=== PATIENT | female | born 1950 | race Caucasian/White ===

== ENCOUNTER → 2018-08-31 | Outpatient (CLI) | payer MEDICARE ==
[~2018-08-31] MED LIST: ASPI-933 PO; FLUO20CA25 PO; METO50TA7 PO; SIMV40TA2 PO; TRM50T PO
--- NOTE | 2018-08-31 14:36 | Diagnostic Imaging Report ---
PROCEDURE: CT abdomen and pelvis without contrast. TECHNIQUE: Multiple contiguous axial images were obtained through the abdomen and pelvis without the use of intravenous contrast. Auto Exposure Controls were utilized during the CT exam to meet ALARA standards for radiation dose reduction. INDICATION: Microhematuria. Patient has history of kidney stones. COMPARISON: No prior studies are available for comparison. FINDINGS: Lung bases demonstrates calcified granuloma in the right lower lobe. The liver is unremarkable. There appears to be a tiny stone within the gallbladder. No biliary ductal dilatation is seen. Pancreas is unremarkable. There are numerous calcified granulomas throughout the spleen. No adrenal mass is identified. No definite renal calculi or evidence of hydronephrosis is detected. No ureteral or bladder calculi are seen. Aorta and iliac vessels are heavily calcified but nonaneurysmal. Small and large bowel loops are normal in caliber. There is diverticulosis of the sigmoid but no evidence of acute diverticulitis. The uterus is unremarkable. No definite abdominal or pelvic lymphadenopathy is seen. Appendix is unremarkable. IMPRESSION: 1. Cholelithiasis. 2. No definite evidence of urinary tract calculi or obstruction. 3. Uncomplicated diverticulosis. Dictated by: Dictated on workstation # [id number]
== END ==
LOC: RAD 14:03
PROVIDERS: ATTEND Urology
DX: K80.20 Calculus of gallbladder without cholecystitis without obstruction (principal); K57.30 Diverticulosis of large intestine without perforation or abscess without bleeding; R31.29 Other microscopic hematuria; Z87.442 Personal history of urinary calculi
CPT/HCPCS: 74176

== ENCOUNTER → 2018-09-21 | Outpatient (CLI) | payer OTHER, MEDICARE ==
--- NOTE | 2018-09-21 12:54 | Diagnostic Imaging Report ---
INDICATION: 68-year-old a systematic postmenopausal female. COMPARISON: None available. FINDINGS: AP Spine L1-L4: [BMD (g/cm2): 1.101] [T-Score: -0.8] [Z-Score: 0.2] [BMD Previous: na] [BMD % Change: na] LT Hip Neck: [BMD (g/cm2): 0.806] [T-Score: -1.7] [Z-Score: -0.5] LT Hip Total: [BMD (g/cm2):0.872] [T-Score:-1.1] [Z-Score: -0.2] [BMD Previous: na] [BMD % Change: na] RT Hip Neck: [BMD (g/cm2):0.826] [T-Score:-1.5] [Z-Score:-0.4] RT Hip Total: [BMD (g/cm2):0.916] [T-score:-0.7] [Z-Score:0.1] [BMD Previous:na] [BMD % Change:na] *Indicates significant change from prior examination based on 95% confidence level. World Health Organization criteria for BMD interpretation classify patients as Normal (T-score at or above -1.0), Osteopenic (T-score between -1.0 and -2.5) or Osteoporotic (T-score at or below -2.5). LIMITATIONS AND MODIFICATION: None. FRACTURE RISK (FRAX SCORE): The ten year probability of (%): Major Osteoporotic Fracture: [9.8] Hip Fracture: [2.1] IMPRESSION: 1. Osteopenia (Low bone mass). 2. Baseline examination. 3. See below National Osteoporosis Foundation guidelines on when to potentially initiate pharmacologic therapy. Based on the National Osteoporosis Foundation Guidelines, pharmacologic treatment should be initiated in any of the following, unless clinical conditions suggest otherwise: * Any patient with prior fragility fracture of the hip or vertebrae. A spine fracture indicates 5X risk for subsequent spine fracture and 2X risk for subsequent hip fracture. * Osteoporosis (T-score <-2.5). * Postmenopausal women and men age 50 and older with low bone mass/osteopenia (T-score between -1.0 and -2.5) by DXA and 10-year major osteoporotic fracture greater than 20% or a 10-year probability of hip fracture greater than 3%. These fracture risks are supplied above in the FRAX score, if applicable. * Clinician judgement and/or patient preferences may indicate treatment for people with 10-year fracture probabilities above or below these levels. Dictated by: Dictated on workstation # [id number]
== END ==
LOC: RAD 08:19
PROVIDERS: ATTEND Nurse Practitioner Primary Care
DX: M85.89 Other specified disorders of bone density and structure, multiple sites (principal); Z78.0 Asymptomatic menopausal state
CPT/HCPCS: 77080

== ENCOUNTER → 2019-04-06 | Outpatient (CLI) | payer MEDICARE, OTHER ==
--- NOTE | 2019-04-06 09:35 | Diagnostic Imaging Report ---
INDICATION: Screening. TECHNIQUE: The current study was also evaluated with a Computer Aided Detection (CAD) system. 3D Tomographic imaging was also performed. COMPARISON: 04/07/2018 and 03/17/2016. FINDINGS: There are scattered fibroglandular densities bilaterally. There are a few benign-type calcifications. There is no dominant mass, spiculated lesion, or suspicious calcification identified. The skin, nipples, and axillae are unremarkable. IMPRESSION: Benign findings. ACR BI-RADS Category 2: Benign findings. Result letter will be mailed to the patient. Note: At least 10% of breast cancer is not imaged by mammography. Dictated by: Dictated on workstation # [id number]
== END ==
LOC: RAD 07:12
PROVIDERS: ATTEND Nurse Practitioner Primary Care
DX: Z12.31 Encounter for screening mammogram for malignant neoplasm of breast (principal)
CPT/HCPCS: 77067

== ENCOUNTER → 2019-12-21 | Outpatient (CLI) | payer MEDICARE ==
[~2019-12-21] MED LIST changes: +RT-ALBUTEROL SULF 2.5 MG/3 ML PRE-MIX VIAL INH ONE
== END ==
LOC: RT 10:04
PROVIDERS: ATTEND Nurse Practitioner Family
DX: J44.9 Chronic obstructive pulmonary disease, unspecified (principal)
CPT/HCPCS: 94060; 94726; 94729

== ENCOUNTER → 2020-02-07 | Outpatient (CLI) | payer MEDICARE ==
[~2020-02-07] MED LIST changes: -RT-ALBUTEROL SULF 2.5 MG/3 ML PRE-MIX VIAL INH ONE
--- NOTE | 2020-02-07 09:23 | Diagnostic Imaging Report ---
PROCEDURE: CT chest without contrast. TECHNIQUE: Multiple contiguous axial images were obtained through the chest without the use of intravenous contrast. Auto Exposure Controls were utilized during the CT exam to meet ALARA standards for radiation dose reduction. INDICATION: Shortness of breath There are no prior CT chest examinations available for comparison. The heart size is at the upper limits of normal. There are extensive coronary calcifications evident.. The aorta is not abnormally dilated. There is no obvious mediastinal or hilar adenopathy. The thyroid gland was partially obscured by streak artifact. There are mild emphysematous changes involving both lungs. There is no significant component of interstitial fibrosis identified. There is a 3.6 x 6.0 cm calcified nodule in the right lung base. Most likely this is a benign granuloma. The images through the upper abdomen show that there is a 3.5 cm hiatal hernia. This finding is stable compared to the prior CT abdomen/pelvis exam of 08/31/2018. There is no acute abnormality of the upper abdomen. The bone windows show no evidence for a fracture or for destructive lesion. There is severe degenerative disc and bone disease involving the anterior aspects of T7T 8T9 and T10. There is no acute bony abnormality noted. IMPRESSION: 1. There is no acute cardiopulmonary abnormality. 2. There are mild emphysematous changes involving both lungs. There is no significant component of interstitial fibrosis identified. 3. There is borderline cardiomegaly and coronary artery disease. 4. The small hiatal hernia seen previously appears stable. 5. There is severe degenerative disc and bony disease involving the lower thoracic spine. Dictated by: Dictated on workstation # [id number]
== END ==
LOC: RAD 09:15
PROVIDERS: ATTEND Nurse Practitioner
DX: J43.9 Emphysema, unspecified (principal); K44.9 Diaphragmatic hernia without obstruction or gangrene; M51.34 Other intervertebral disc degeneration, thoracic region
CPT/HCPCS: 71250

== ENCOUNTER → 2020-04-06 | Outpatient (CLI) | payer MEDICARE ==
[2020-04-06 12:26] LABS: ALBUMIN 4.1 GM/DL (3.2-4.5); BILIRUBIN,TOTAL 0.4 MG/DL (0.1-1.0); CALCIUM 9.4 MG/DL (8.5-10.1); CREATININE SERUM 1.26 MG/DL (0.60-1.30); POTASSIUM 3.9 MMOL/L (3.6-5.0); TOTAL PROTEIN 7.6 GM/DL (6.4-8.2)
== END ==
LOC: LAB 11:45
PROVIDERS: ATTEND Internal Medicine Cardiovascular Disease
DX: E78.2 Mixed hyperlipidemia (principal)
CPT/HCPCS: 36415; 80053; 80061

== ENCOUNTER → 2020-04-11 | Outpatient (CLI) | payer MEDICARE | LOC: CARD 14:00 | PROVIDERS: ATTEND Internal Medicine Cardiovascular Disease | DX: I10 Essential (primary) hypertension (principal); R07.9 Chest pain, unspecified | CPT/HCPCS: 93306 ==

== ENCOUNTER → 2020-04-16 | Outpatient (CLI) | payer MEDICARE ==
[~2020-04-16] VITALS: Ht 165 cm; Wt 95.0 kg
[~2020-04-16] MED LIST changes: +CATHETER FLUSH 10 ML SYR IV PRN; +REGADENOSON 0.4 MG/5 ML SYR (LEXISCAN) IV ONE
[2020-04-16 08:51] VITALS: BP 169/78
--- NOTE | 2020-04-16 10:43 | Cardiology Stress Test Report ---
Stress Test Report Date of Procedure/Referring: Date of Procedure: Apr 16, 2020 PCP Mali Ross MD Admitting Physician Romi Boykin DO Indications: HTN Baseline Heart Rate: 67 Baseline Blood Pressure: Blood Pressure Systolic: 169 Blood Pressure Diastolic: 78 Baseline Vitals Vital Signs Date Time Temp Pulse Resp B/P (MAP) Pulse Ox O2 Delivery O2 Flow Rate FiO2 04/16/20 08:51 61 169/78 (108) 98 Baseline EKG: Baseline EKG: NSR Summary After explaining the procedure to the patient, she signed a consent and then brought to the stress nuclear laboratory. Patient received 0.4 mg Lexiscan for stress test, ECG, heart rate and blood pressure were monitored continuously. Resting and stress dose of radio tracer were injected, imaging was acquired and reviewed in short axis, horizontal long axis and vertical long axis views. TID: 0.96 SSS: 2 SDS: 0 EF: 73 1. Patient tolerated Lexiscan well 2. Breast attenuation with typical female pattern, mild decrease uptake at the mid anterior wall with subtle reversibility, no significant ischemia or infarction on SPECT images Normal left ventricular size, EF 73 percent MALI ROSS MD Apr 16, 2020 10:43
== END ==
LOC: CARD 06:44
PROVIDERS: ATTEND Internal Medicine Cardiovascular Disease
DX: I10 Essential (primary) hypertension (principal); R07.9 Chest pain, unspecified
CPT/HCPCS: 78452; 93017; A9502

== ENCOUNTER → 2020-05-11 | Outpatient (CLI) | payer MEDICARE ==
[~2020-05-11] MED LIST changes: -CATHETER FLUSH 10 ML SYR IV PRN; -REGADENOSON 0.4 MG/5 ML SYR (LEXISCAN) IV ONE
== END ==
LOC: LABNPT 06:04
PROVIDERS: ATTEND Nurse Practitioner Family
DX: J44.9 Chronic obstructive pulmonary disease, unspecified (principal); G47.10 Hypersomnia, unspecified; G47.34 Idiopathic sleep related nonobstructive alveolar hypoventilation; Z20.822 Contact with and (suspected) exposure to COVID-19
CPT/HCPCS: 87635

== ENCOUNTER → 2020-05-21 | Outpatient (CLI) | payer MEDICARE ==
--- NOTE | 2020-05-22 09:38 | Diagnostic Imaging Report ---
EXAMINATION: Digital mammogram INDICATION: Bilateral screening This study was compared to the prior exams of 04/06/2019, 04/07/2018 and 03/17/2016. At this time there are no current complaints. The current study was also evaluated with a Computer Aided Detection (CAD) system. FINDINGS: The fibroglandular tissue in both breasts is heterogeneously dense. This does limit the sensitivity of this exam. Overall, there does not appear to have been any significant change when compared to the prior study. No primary or secondary sign of malignancy is noted. IMPRESSION: There is no radiographic evidence for malignancy. ACR BI-RADS Category 1: Negative. Result letter will be mailed to the patient. Note: At least 10% of breast cancer is not imaged by mammography. Dictated by: Dictated on workstation # [id number]
== END ==
LOC: RAD 07:30
PROVIDERS: ATTEND Nurse Practitioner
DX: Z12.31 Encounter for screening mammogram for malignant neoplasm of breast (principal)
CPT/HCPCS: 77063; 77067

== ENCOUNTER → 2020-06-08 | Outpatient (CLI) | payer MEDICARE | LOC: LABNPT 08:33 | PROVIDERS: ATTEND Nurse Practitioner Family | DX: Z01.812 Encounter for preprocedural laboratory examination (principal); G47.10 Hypersomnia, unspecified; G47.34 Idiopathic sleep related nonobstructive alveolar hypoventilation; Z20.822 Contact with and (suspected) exposure to COVID-19 | CPT/HCPCS: 87635 ==

== ENCOUNTER → 2020-06-12 | Outpatient (CLI) | payer MEDICARE | LOC: SLEEP 20:18 | PROVIDERS: ATTEND Nurse Practitioner Family | DX: G47.10 Hypersomnia, unspecified (principal); G47.34 Idiopathic sleep related nonobstructive alveolar hypoventilation | CPT/HCPCS: 95811 ==

== ENCOUNTER → 2020-07-27 | Outpatient (CLI) | payer MEDICARE | LOC: LABNPT 09:03 | PROVIDERS: ATTEND Nurse Practitioner Family | DX: G47.10 Hypersomnia, unspecified (principal); G47.34 Idiopathic sleep related nonobstructive alveolar hypoventilation; G47.33 Obstructive sleep apnea (adult) (pediatric); Z20.822 Contact with and (suspected) exposure to COVID-19 | CPT/HCPCS: 87635 ==

== ENCOUNTER 2020-07-31 20:46 | Outpatient (CLI) | payer MEDICARE | END 2020-08-01 06:45 | disposition home or self-care (01) | LOC: SLEEP 20:46 | PROVIDERS: ATTEND Nurse Practitioner Family | DX: G47.33 Obstructive sleep apnea (adult) (pediatric) (principal); G47.34 Idiopathic sleep related nonobstructive alveolar hypoventilation; G47.10 Hypersomnia, unspecified | CPT/HCPCS: 95811 ==

== ENCOUNTER → 2020-09-25 | Outpatient (CLI) | payer MEDICARE | LOC: LABNPT 06:22 | PROVIDERS: ATTEND Nurse Practitioner Family | DX: G47.10 Hypersomnia, unspecified (principal); G47.34 Idiopathic sleep related nonobstructive alveolar hypoventilation; G47.33 Obstructive sleep apnea (adult) (pediatric); Z20.822 Contact with and (suspected) exposure to COVID-19 | CPT/HCPCS: 87635 ==

== ENCOUNTER 2020-09-27 20:34 | Outpatient (CLI) | payer MEDICARE | END 2020-09-28 06:30 | disposition home or self-care (01) | LOC: SLEEP 20:34 | PROVIDERS: ATTEND Nurse Practitioner Family | DX: G47.33 Obstructive sleep apnea (adult) (pediatric) (principal); G47.10 Hypersomnia, unspecified; G47.34 Idiopathic sleep related nonobstructive alveolar hypoventilation | CPT/HCPCS: 95811 ==

== ENCOUNTER → 2021-05-22 | Outpatient (CLI) | payer MEDICARE ==
--- NOTE | 2021-05-22 08:59 | Diagnostic Imaging Report ---
INDICATION: Routine screening. COMPARISON: 05/21/2020 and 04/06/2019. TECHNIQUE: 2D and 3D bilateral screening mammography was performed with CAD. FINDINGS: Scattered fibroglandular densities are identified bilaterally. Benign calcifications in both breasts appear stable. No new mass or malignant-appearing microcalcifications are seen. The axillae are unremarkable. IMPRESSION: No mammographic features suspicious for malignancy are identified. ACR BI-RADS Category 2: Benign findings. Result letter will be mailed to the patient. Note: At least 10% of breast cancer is not imaged by mammography. Dictated by: Dictated on workstation # [id number]
== END ==
LOC: RAD 07:30
PROVIDERS: ATTEND Nurse Practitioner
DX: Z12.31 Encounter for screening mammogram for malignant neoplasm of breast (principal)
CPT/HCPCS: 77063; 77067

== ENCOUNTER 2021-07-17 06:21 | Outpatient (CLI) | payer MEDICARE ==
[~2021-07-17] VITALS: Ht 165.1 cm; Wt 95.9 kg
[2021-07-17] MEDS ORDERED: FAMO-119 PO (10:45)
[2021-07-17] MEDS ORDERED: FLUT15.845 NS (10:45)
[2021-07-17] MEDS ORDERED: MELA5CAP PO (10:45)
[2021-07-17] MEDS ORDERED: LEVO50CA4 PO (10:45)
[2021-07-17] MEDS ORDERED: DOCU100T7 PO (10:45)
[2021-07-17] MEDS ORDERED: BUDE10.2 IH (10:45)
[2021-07-17] MEDS ORDERED: CHOL200078 PO (10:45)
[2021-07-17] MEDS ORDERED: OXYB-52 PO (10:45)
[2021-07-17] MEDS ORDERED: TRAZ-227 PO (10:45)
[2021-07-17] MEDS ORDERED: MULT120T PO (10:45)
[2021-07-17] MEDS ORDERED: LOSA1TAB20 PO (10:45)
[2021-07-17] MEDS ORDERED: BUPR-105 PO (10:45)
[2021-07-17] MEDS ORDERED: FLUO20TA28 PO (10:45)
[2021-07-17] MEDS ORDERED: OMEG-166 PO (10:45)
[2021-07-17] MEDS ORDERED: TIOT18CA2 IH (10:45)
[2021-07-17] MEDS ORDERED: CETI10TA24 PO (10:45)
[2021-07-17] MEDS ORDERED: ATOR20TA66 PO (10:45)
[2021-07-17] MEDS ORDERED: AMLO-251 PO (10:45)
[2021-07-17] MEDS ORDERED: CALC-79 PO (10:45)
== END 2021-07-17 13:39 | disposition home or self-care (01) ==
LOC: PREOP 06:21
PROVIDERS: ATTEND Surgery
DX: Z01.818 Encounter for other preprocedural examination (principal)

== ENCOUNTER 2021-07-30 07:53 | Day surgery (SDC) | payer MEDICARE ==
[~2021-07-30] VITALS: Ht 165 cm; Wt 95.9 kg
[~2021-07-30 07:53] MED LIST changes: +AMLO-251 PO; +ATOR20TA66 PO; +BUDE10.2 IH; +BUPR-105 PO; +CALC-79 PO; +CETI10TA24 PO; +CHOL200078 PO; +DOCU100T7 PO; +FAMO-119 PO; +FLUO20TA28 PO; +FLUT15.845 NS; +LEVO50CA4 PO; +LOSA1TAB20 PO; +MELA5CAP PO; +MULT120T PO; +OMEG-166 PO; +OXYB-52 PO; +TIOT18CA2 IH; +TRAZ-227 PO
[2021-07-30] MEDS ORDERED: LACTATED RINGERS 1,000 ML IV STA (07:57)
[2021-07-30] MEDS ORDERED: HURRICAINE EXT TUBE (BENZOCAINE) XX PRN (08:00)
[2021-07-30 08:15] VITALS: BP 188/73
[2021-07-30] MEDS ORDERED: MIDAZOLAM 2 MG/2 ML (VERSED) VIAL ONE (09:32)
[2021-07-30] MEDS ORDERED: proPOfol 200 MG/20 ML (DIPRIVAN) VIAL IV ONE (09:33)
[2021-07-30 10:25] VITALS: BP 119/56
--- NOTE | 2021-07-30 10:25 | Progress Note-Post Operative ---
Post-Operative Progess Note Surgeon (s)/[employer]p Customer Development (s) Surgeon EDWARD ALFREDO DO [employer]: na Pre-Operative Diagnosis epigastric pain, dysphagia Post-Operative Diagnosis hiatal hernia Procedure & Operative Findings Date of Procedure 07/30/21 Procedure Performed/Findings egd c biopsies Anesthesia Type per hatchery worker Estimated Blood Loss Estimated blood loss (mL): minimal Specimens/Packing Specimens Removed antrum, ge EDWARD ALFREDO DO Jul 30, 2021 10:25
[2021-07-30] MEDS ORDERED: PANT40TA2 PO (10:26)
--- NOTE | 2021-07-30 10:28 | Discharge Inst-Simple/Standard ---
Discharge Inst-Standard Discharge Medications New, Converted or Re-Newed RX: Transmitted to Pharmacy Patient Instructions/Follow Up Plan of Care/Instructions/FU: 2 weeks [place] Activity as Tolerated: Yes Discharge Diet: Regular Diet EDWARD ALFREDO DO Jul 30, 2021 10:28
[2021-07-30 10:30] VITALS: BP 118/59
[2021-07-30 10:31] VITALS: BP 118/59
[2021-07-30 10:55] VITALS: BP 136/80
--- NOTE | 2021-07-30 11:34 | Anesthesia-General Post-Op ---
MAC Patient Condition Mental Status/LOC: Same as Preop Cardiovascular: Satisfactory Nausea/Vomiting: Absent Respiratory: Satisfactory Pain: Controlled Complications: Absent Post Op Complications Complications None Follow Up Care/Instructions Patient Instructions None needed. Anesthesiology Discharge Order Discharge Order Patient is doing well, no complaints, stable vital signs, no apparent adverse anesthesia problems. No complications reported per nursing. VIOLETTE CASTILLO CRNA Jul 30, 2021 11:34
--- NOTE | 2021-07-30 16:15 | OPERATIVE REPORT ---
DATE OF SERVICE: 07/30/2021 PREOPERATIVE DIAGNOSES: Epigastric pain, dysphagia. POSTOPERATIVE DIAGNOSIS: Hiatal hernia. PROCEDURE: EGD with biopsy. SURGEON: Edward Engel DO ANESTHESIA: Per [employer]. ESTIMATED BLOOD LOSS: None. COMPLICATIONS: None. INDICATIONS: The patient is a 71-year-old female who has been having some epigastric abdominal pain, some dysphagia symptoms. She understands risks and benefits of procedure and wishes to proceed. Consent was signed in the chart. DESCRIPTION OF PROCEDURE: The patient was taken to the endoscopy suite, placed in left lateral recumbent position. Timeout was performed. Scope was inserted in mouth, down the esophagus, stomach and into the duodenum without difficulty. There were no polyps, masses or ulcerations within the duodenum. Scope was slowly retracted back, where it was further insufflated. No polyps, masses or ulcerations. Biopsy of the antrum was obtained. Scope was retroflexed noting a hiatal hernia, no other pathology. Scope was returned to its normal position, slowly withdrawn to distal esophagus. Biopsy of the GE junction was obtained. Scope was slowly retracted back to completely remove noting no other pathology. The patient tolerated the procedure well without any complications. She was taken to recovery room in stable condition. RECOMMENDATIONS: The patient will be started on Protonix and stop Pepcid. We will see how her symptoms are doing. We will follow up in two to three weeks. Any issues before that be seen at that time. CC: Kym Vaughan - requested, unable to deliver. Job ID: [id number] DocumentID: [id number] Dictated Date: 07/30/2021 10:30:08 Admitting Office Escort Date: 07/30/2021 16:14:47 Dictated By: EDWARD ENGEL DO [facility]
== END 2021-07-30 11:00 | disposition home or self-care (01) ==
LOC: ENDO 07:53
PROVIDERS: ATTEND Surgery
DX: K44.9 Diaphragmatic hernia without obstruction or gangrene (principal); K29.50 Unspecified chronic gastritis without bleeding; K21.00 Gastro-esophageal reflux disease with esophagitis, without bleeding; K31.A0 Gastric intestinal metaplasia, unspecified; Z87.891 Personal history of nicotine dependence
CPT/HCPCS: 88305

== ENCOUNTER 2021-10-26 19:10 | Emergency (ER) | payer MEDICARE ==
[~2021-10-26 19:10] MED LIST changes: +PANT40TA2 PO
--- NOTE | 2021-10-26 20:09 | ED GU-Female ---
General Chief Complaint: - Reproductive Stated Complaint: UNABLE TO URINATE Nursing Triage Note: PT AMB TO RM 2 WITH C/O UNABLE TO URINATE TODAY AND HAVING DARK URINE FOR THE LAST COUPLE OF DAYS. PT ON ABX FOR BACTERIAL INFECTION IN L LEG Source: patient Exam Limitations: no limitations History of Present Illness Date Seen by Provider: Oct 26, 2021 Time Seen by Provider: 19:48 Initial Comments Patient to ER by private conveyance chief complaint she been dealing with a cellulitis after falling in [place]. She was on antibiotics on Thursday and then doubled the antibiotics to a different antibiotic when she went to [facility] on Thursday. She feels like the redness started to get little better but now today she is not having the ability to urinate. She says she dribbled a little bit this morning and has not had a full urine since yesterday evening. She has no history of urinary problems. She does have a history of kidney disease but she does not know her stage. She follows with Inge Sandoval at [facility]. She denies having any surgeries on the bladder. No diarrhea constipation fever or chills. No significant pain in her abdomen. Allergies and Home Medications Allergies Coded Allergies: No Known Drug Allergies (Unverified , 10/16/09) Patient Home Medication List Home Medication List Reviewed: Yes Amlodipine Besylate (Amlodipine Besylate) 10 Mg Tablet, 10 MG PO DAILY, (Reported) Entered as Reported by: MED AYON on 07/17/21 1045 Atorvastatin Calcium (Atorvastatin Calcium) 20 Mg Tablet, 20 MG PO DAILY, (Reported) Entered as Reported by: MED AYON on 07/17/21 1045 Budesonide/Formoterol Fumarate (Symbicort 160-4.5 Mcg Inhaler) 160 Mcg-4.5 Mcg/Actuation Hfa.aer.ad, 2 PUFF IH BID, (Reported) Entered as Reported by: MED AYON on 07/17/21 1045 Bupropion HCl (Bupropion HCl Sr) 150 Mg Tablet.er, 150 MG PO DAILY, (Reported) Entered as Reported by: MED AYON on 07/17/21 1045 Calcium Carb/Vit D3/Minerals (Calcium +D & Minerals Chew Tab) 600 Mg-400 Tab.chew, 1 EACH PO DAILY, (Reported) Entered as Reported by: MED AYON on 07/17/21 104 Cetirizine HCl (Cetirizine HCl) 10 Mg Tab.chew, 10 MG PO DAILY, (Reported) Entered as Reported by: MED AYON on 07/17/211044 Cholecalciferol (Vitamin D3) (Vitamin D3) 50 Mcg (2000 Unit) Tab.chew, 50 MCG PO DAILY, (Reported) Entered as Reported by: MED AYON on 07/17/211044 Docusate Sodium (Stool Softener) 100 Mg Tablet, 100 MG PO DAILY, (Reported) Entered as Reported by: MED AYON on 07/17/211044 Fluoxetine HCl (Fluoxetine HCl) 20 Mg Tablet, 20 MG PO DAILY, (Reported) Entered as Reported by: MED AYON on 07/17/211044 Fluticasone Propionate (Fluticasone Propionate) 50 Mcg/Actuation [place].susp, 15.8 ML NS DAILY, (Reported) Entered as Reported by: MED AYON on 07/17/211044 Levothyroxine Sodium (Levothyroxine) 50 Mcg Capsule, 50 MCG PO DAILY, (Reported) Entered as Reported by: MED AYON on 07/17/211044 Losartan/Hydrochlorothiazide (Losartan-Hctz 50-12.5 mg Tab) 50 Mg-12.5 Mg Tablet, 1 EACH PO DAILY, (Reported) Entered as Reported by: MED AYON on 07/17/211044 Melatonin (Melatonin) 5 Mg Capsule, 5 MG PO HS, (Reported) Entered as Reported by: MED AYON on 07/17/211044 Multivit-Minerals/Folic Acid (Centrum Adult 50 Fresh-Fruity) 120 Mcg Tab.chew, 120 MCG PO DAILY, (Reported) Entered as Reported by: MED AYON on 07/17/211044 [place]-3/Dha/Epa/Fish Oil (Fish Oil EC 1,200 mg Softgel) 360 Mg-1,200 Mg Capsule.dr, 1 EACH PO DAILY, (Reported) Entered as Reported by: MED AYON on 07/17/21 104 Oxybutynin Chloride (Oxybutynin Chloride ER) 5 Mg Tab.er.24, 5 MG PO DAILY, (Reported) Entered as Reported by: MED AYON on 07/17/21 1045 Pantoprazole Sodium (Protonix) 40 Mg Tablet.dr, 40 MG PO DAILY Prescribed by: EDWARD ALFREDO on 07/30/21 1026 Tiotropium [place] (Spiriva) 18 Mcg Aerp, 1 INH IH DAILY, (Reported) Entered as Reported by: MED AYON on 07/17/21 1045 Trazodone HCl (Trazodone HCl) 100 Mg Tablet, 100 MG PO DAILY, (Reported) Entered as Reported by: MED AYON on 07/17/21 1045 Review of Systems Review of Systems Constitutional: No chills, No diaphoresis EENTM: No ear discharge, No ear pain Respiratory: No cough, No short of breath Cardiovascular: No chest pain, No edema Gastrointestinal: No abdominal pain, No nausea, No vomiting Genitourinary: denies burning, denies dysuria All Other Systemes Reviewed Negative Unless Noted: Yes Past Bhzqfzj-Iiordu-Xfjyko Hx Patient Social History Tobacco Use?: No Use of E-Cig and/or Vaping dev: No Substance use?: No Alcohol Use?: No Pt feels they are or have been: No Immunizations Up To Date Influenza Vaccine Up-to-Date: Yes; Up-to-Date First/Initial COVID19 Vaccinat: APRIL 2020 Second COVID19 Vaccination Rodney: MAY 2020 Third COVID19 Vaccination Date: NO COVID19 Vaccine [employer]: [employer] Seasonal Allergies Seasonal Allergies: No Past Medical History Surgery/Hospitalization HX: copd, titi, ckd Surgeries: Yes (ROTATOR CUFF REPAIR) Respiratory: Yes COPD Cardiac: Yes High Cholesterol, Hypertension Neurological: No Genitourinary: No Gastrointestinal: No Musculoskeletal: No Endocrine: No HEENT: No Cancer: No Psychosocial: No Integumentary: No Blood Disorders: No Physical Exam Vital Signs Vital Signs - First Documented 10/26/21 19:33 Temp 36.9 Pulse 84 Resp 18 B/P (MAP) 197/78 (117) Capillary Refill : Height, Weight, BMI Height: '" Weight: lbs. oz. kg; 35.22 BMI Method: General Appearance: WD/WN, no apparent distress HEENT: PERRL/EOMI, pharynx normal Neck: full range of motion, supple, normal inspection Cardiovascular: normal peripheral pulses, regular rate, rhythm Respiratory: no respiratory distress, no accessory muscle use Gastrointestinal: normal bowel sounds, non tender Neurologic/Psychiatric: alert, normal mood/affect, oriented x 3 Skin: normal color, warm/dry Progress/Results/Core Measures Suspected Sepsis SIRS Temperature: Pulse: 84 Respiratory Rate: 18 Laboratory Tests 10/26/21 20:53: White Blood Count 8.8 Blood Pressure 197 /78 Mean: 117 Laboratory Tests 10/26/21 20:53: Creatinine 1.34H, Platelet Count 231, Total Bilirubin 0.3 Results/Orders Lab Results Laboratory Tests Test 10/26/21 20:53 10/26/21 22:15 Range/Units White Blood Count 8.8 4.3-11.0 10^3/uL Red Blood Count 4.03 3.80-5.11 10^6/uL Hemoglobin 11.9 11.5-16.0 g/dL Hematocrit 37 35-52 % Mean Corpuscular Volume 91 80-99 fL Mean Corpuscular Hemoglobin 30 25-34 pg Mean Corpuscular Hemoglobin Concent 33 32-36 g/dL Red Cell Distribution Width 15.4 H 10.0-14.5 % Platelet Count 231 130-400 10^3/uL Mean Platelet Volume 9.4 9.0-12.2 fL Immature Granulocyte % (Auto) 0 % Neutrophils (%) (Auto) 58 42-75 % Lymphocytes (%) (Auto) 21 12-44 % Monocytes (%) (Auto) 14 H 0-12 % Eosinophils (%) (Auto) 6 0-10 % Basophils (%) (Auto) 1 0-10 % Neutrophils # (Auto) 5.1 1.8-7.8 10^3/uL Lymphocytes # (Auto) 1.9 1.0-4.0 10^3/uL Monocytes # (Auto) 1.2 H 0.0-1.0 10^3/uL Eosinophils # (Auto) 0.5 H 0.0-0.3 10^3/uL Basophils # (Auto) 0.1 0.0-0.1 10^3/uL Immature Granulocyte # (Auto) 0.0 0.0-0.1 10^3/uL Sodium Level 137 135-145 MMOL/L Potassium Level 4.1 3.6-5.0 MMOL/L Chloride Level 105 98-107 MMOL/L Carbon Dioxide Level 21 21-32 MMOL/L Anion Gap 11 5-14 MMOL/L Blood Urea Nitrogen 19 H 7-18 MG/DL Creatinine 1.34 H 0.60-1.30 MG/DL Estimat Glomerular Filtration Rate 43 BUN/Creatinine Ratio 14 Glucose Level 99 70-105 MG/DL Calcium Level 9.4 8.5-10.1 MG/DL Corrected Calcium 9.3 8.5-10.1 MG/DL Total Bilirubin 0.3 0.1-1.0 MG/DL Aspartate Amino Transf (AST/SGOT) 40 H 5-34 U/L Alanine Aminotransferase (ALT/SGPT) 35 0-55 U/L Alkaline Phosphatase 90 40-136 U/L C-Reactive Protein High Sensitivity 2.48 H 0.00-0.50 MG/DL Total Protein 7.5 6.4-8.2 GM/DL Albumin 4.1 3.2-4.5 GM/DL Urine Color YELLOW Urine Clarity CLEAR Urine pH 6.0 5-9 Urine Specific [place] 1.015 L 1.016-1.022 Urine Protein NEGATIVE NEGATIVE Urine Glucose (UA) NEGATIVE NEGATIVE Urine Ketones NEGATIVE NEGATIVE Urine Nitrite NEGATIVE NEGATIVE Urine Bilirubin NEGATIVE NEGATIVE Urine Urobilinogen 0.2 < = 1.0 MG/DL Urine Leukocyte Esterase TRACE H NEGATIVE Urine RBC (Auto) NEGATIVE NEGATIVE Urine RBC NONE /HPF Urine WBC 2-5 /HPF Urine Squamous Epithelial Cells 0-2 /HPF Urine Renal Epithelial Cells NONE /HPF Urine Bacteria NEGATIVE /HPF Urine Casts NONE /LPF Urine Mucus NEGATIVE /LPF Urine Culture Indicated YES My Orders Orders - OSIEL BUTLER Ua Culture If Indicated (10/26/21 19:14) Cbc With Automated Diff (10/26/21 20:02) Comprehensive Metabolic Panel (10/26/21 20:02) Hs C Reactive Protein (10/26/21 20:02) Bladder Scan (10/26/21 20:02) Ed Iv/Invasive Line Start (10/26/21 20:51) Lactated Ringers (Lr 1000 Ml Iv Solution (10/26/21 21:00) Ondansetron Injection (Zofran Injectio (10/26/21 21:45) Antacid Suspension (Mylanta Suspension (10/26/21 22:15) Ua Culture If Indicated (10/26/21 22:39) Urine Culture (10/26/21 22:15) Medications Given in ED Current Medications Medications Dose Ordered Sig/Ashlie Route Start Time Stop Time Status Last Admin Dose Admin Al Hydrox/Mg Hydrox/Simethicone 30 ml ONCE ONCE PO 10/26/21 22:15 10/26/21 22:16 DC 10/26/21 22:10 30 ML Lactated Ringer's 1,000 ml @ 0 mls/hr Q0M ONCE IV 10/26/21 21:00 10/26/21 21:01 DC 10/26/21 20:58 1,000 MLS/HR Ondansetron HCl 8 mg ONCE ONCE IVP 10/26/21 21:45 10/26/21 21:46 DC 10/26/21 21:38 8 MG Vital Signs/I&O 10/26/21 19:33 Temp 36.9 Pulse 84 Resp 18 B/P (MAP) 197/78 (117) Capillary Refill : Blood Pressure Mean: 117 Progress Note #1: Time: 20:13 Progress Note Bladder scan, check some labs make sure kidney functions okay. CRP and white count make sure her cellulitis is not out of control. Her vital signs are aseptic. She can probably continue doing outpatient oral therapy Progress Note #2: Time: 21:33 Progress Note Patient's bladder scan never showed more than 58 mL of urine. So we started a liter of fluids check some labs. Her creatinine was at her baseline. She had labs that she brought with her from her last visit earlier in the week showing a creatinine of 1.3 today is 1.39 creatinine. We will go ahead and give her that liter of fluids see if she can urinate. She is saying that she is having a little nausea so we will give her 8 mg of Zofran IV. Departure Impression Primary Impression: Urinary hesitancy Additional Impression: Mild dehydration Disposition: 01 HOME, SELF-CARE Condition: Stable Departure-Patient Inst. Decision time for Depature: 23:18 Referrals: NAREN JUAREZ DO (PCP) Primary Care Physician INGE SANDOVAL APRN (Family) Primary Care Physician Patient Instructions: Why Water Is Important to Health Add. Discharge Instructions: Drink extra water for the next couple days. Return to the ER if you are having severe fever, severe pain or redness going up your leg beyond the level of your knee. Continue take your antibiotics as prescribed. All discharge instructions reviewed with patient and/or family. Voiced understanding. OSIEL BUTLER J Oct 26, 2021 20:09
[2021-10-26 20:59] LABS: BASOPHILS # (AUTO) 0.1 10^3/uL (0.0-0.1); BASOPHILS % (AUTO) 1 % (0-10); EOSINOPHILS # (AUTO) 0.5 10^3/uL (0.0-0.3); EOSINOPHILS % (AUTO) 6 % (0-10); HEMATOCRIT 37 % (35-52); HEMOGLOBIN 11.9 g/dL (11.5-16.0); LYMPHOCYTES # (AUTO) 1.9 10^3/uL (1.0-4.0); LYMPHOCYTES % (AUTO) 21 % (12-44); MEAN CORPUSCULAR HEMOGLOBIN 30 pg (25-34); MEAN CORPUSCULAR HGB CONC 33 g/dL (32-36); MEAN CORPUSCULAR VOLUME 91 fL (80-99); MEAN PLATELET VOLUME 9.4 fL (9.0-12.2); MONOCYTES # (AUTO) 1.2 10^3/uL (0.0-1.0); MONOCYTES % (AUTO) 14 % (0-12); NEUTROPHILS # (AUTO) 5.1 10^3/uL (1.8-7.8); NEUTROPHILS % (AUTO) 58 % (42-75); PLATELET COUNT 231 10^3/uL (130-400); WHITE BLOOD COUNT 8.8 10^3/uL (4.3-11.0)
[2021-10-26] MEDS ORDERED: LACTATED RINGERS 1,000 ML IV ONE (21:00)
[2021-10-26 21:23] LABS: ALBUMIN 4.1 GM/DL (3.2-4.5); BILIRUBIN,TOTAL 0.3 MG/DL (0.1-1.0); CALCIUM 9.4 MG/DL (8.5-10.1); CREATININE SERUM 1.34 MG/DL (0.60-1.30); POTASSIUM 4.1 MMOL/L (3.6-5.0); TOTAL PROTEIN 7.5 GM/DL (6.4-8.2)
[2021-10-26] MEDS ORDERED: ONDANSETRON 4 MG/2 ML (SDV) Z0FRAN IVP ONE (21:45)
[2021-10-26] MEDS ORDERED: ANTACID SUSP 30 ML UDC (MYLANTA) PO ONE (22:15)
[2021-10-26 22:43] LABS: BILIRUBIN,URINE NEGATIVE (NEGATIVE); CLARITY,URINE CLEAR; COLOR,URINE YELLOW; GLUCOSE, URINE (UA) NEGATIVE (NEGATIVE); KETONES,URINE NEGATIVE (NEGATIVE); LEUKOCYTE ESTERASE ,URINE TRACE (NEGATIVE); NITRITE,URINE NEGATIVE (NEGATIVE); PROTEIN,URINE NEGATIVE (NEGATIVE)
[2021-10-26 23:03] LABS: BACTERIA,URINE NEGATIVE /HPF; SQUAMOUS EPITHELIAL CELL,UR 0-2 /HPF
[2021-10-26 23:25] VITALS: BP 152/75
== END 2021-10-26 23:28 | disposition home or self-care (01) ==
LOC: EDUNIT# 19:10 → ER 19:13
DX: R39.11 Hesitancy of micturition (principal); E86.0 Dehydration
CPT/HCPCS: 36415; 80053; 81000; 85025; 86141; 87088

== ENCOUNTER 2022-06-04 05:44 | Outpatient (CLI) | payer MEDICARE ==
[~2022-06-04] VITALS: Ht 165.1 cm; Wt 92.5 kg
== END 2022-06-06 11:42 | disposition home or self-care (01) ==
LOC: PREOP 05:44
PROVIDERS: ATTEND Surgery
DX: Z01.818 Encounter for other preprocedural examination (principal)

== ENCOUNTER 2022-06-17 10:04 | Day surgery (SDC) | payer MEDICARE ==
[~2022-06-17] VITALS: Ht 165 cm; Wt 92.5 kg
[2022-06-17] MEDS ORDERED: LACTATED RINGERS 1,000 ML IV STA (10:05)
[2022-06-17] MEDS ORDERED: HURRICAINE EXT TUBE (BENZOCAINE) XX PRN (10:15)
[2022-06-17] MEDS ORDERED: PROPOFOL INJECTION 50 ML IV ONE (10:23)
[2022-06-17 10:25] VITALS: BP 168/76
--- NOTE | 2022-06-17 11:16 | Discharge Inst-Simple/Standard ---
Discharge Inst-Standard Reconcile Patient Problems Problems Reviewed?: Yes Patient Instructions/Follow Up Plan of Care/Instructions/FU: F/u in [address] Engel Activity as Tolerated: Yes Discharge Diet: No Restrictions, Regular Diet EDWARD ENGEL DO Jun 17, 2022 11:16
[2022-06-17 11:17] VITALS: BP 88/52
--- NOTE | 2022-06-17 11:19 | Progress Note-Post Operative ---
Post-Operative Progess Note Surgeon (s)/Director Of Infection Control (s) Surgeon EDWARD ALFREDO DO Director Of Infection Control: n/a Pre-Operative Diagnosis chronic gastritis, screening colonoscopy Post-Operative Diagnosis gastritis, hiatal hernia, fibroepithelial rectal polyp, ascending colon polyp, diverticulosis Procedure & Operative Findings Date of Procedure 06/17/22 Procedure Performed/Findings EGD with biopsies, colonoscopy with cold biopsy polypectomy Anesthesia Type per [facility] Estimated Blood Loss Estimated blood loss (mL): none Specimens/Packing Specimens Removed ge and antral biopsy, colon polyp EDWARD ALFREDO DO Jun 17, 2022 11:19
[2022-06-17 11:20] VITALS: BP 96/53
--- NOTE | 2022-06-17 11:31 | Anesthesia-General Post-Op ---
MAC Patient Condition Mental Status/LOC: Same as Preop Cardiovascular: Satisfactory Nausea/Vomiting: Absent Respiratory: Satisfactory Pain: Controlled Complications: Absent Post Op Complications Complications None Follow Up Care/Instructions Patient Instructions None needed. Anesthesiology Discharge Order Discharge Order Patient is doing well, no complaints, stable vital signs, no apparent adverse anesthesia problems. No complications reported per nursing. BRENDA YEE DO Jun 17, 2022 11:31
[2022-06-17 11:42] VITALS: BP 140/73
--- NOTE | 2022-06-17 20:28 | OPERATIVE REPORT ---
DATE OF SERVICE: 06/17/2022 PREOPERATIVE DIAGNOSES: Chronic gastritis and screening colonoscopy. 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 PROCEDURES: EGD with biopsies and colonoscopy with cold biopsy polypectomy. SURGEON: Edward Engel DO ANESTHESIA: Per . ESTIMATED BLOOD LOSS: None. COMPLICATIONS: None. INDICATIONS: The patient is a 72-year-old female with chronic gastritis symptoms and needing screening colonoscopy. She understands risks and benefits of procedure and wished to proceed. Consent was signed in chart. DESCRIPTION OF PROCEDURE: The patient was taken to endoscopy suite, placed in left lateral recumbent position. Timeout was performed. Scope was inserted in the mouth, down the esophagus, stomach, into the duodenum without difficulty. No polyps, masses or ulcerations in the duodenum. Scope was then slowly retracted back the stomach where it was further insufflated. No polyps, masses or ulcerations. Biopsy of the antrum was obtained. Scope was retroflexed noting a moderate size hiatal hernia, no other pathology. Biopsy of the antrum was obtained. Biopsy of GE junction was obtained. Once the scope was slowly retracted back. No polyps, masses or ulcerations visualized. Scope was slowly retracted back until completely removed. Digital rectal exam was performed noting a small polyp right at the anorectal junction. Scope was inserted in the rectum and advanced all the way to the cecum with minimal difficulty. Prep was adequate. Scope was slowly retracted back. No polyps, masses or ulcerations in the cecum. Ascending colon very small polyp, which cold biopsy polypectomy was performed. Scope was continuously retracted back. No polyps, masses or ulcerations in the remainder of the ascending, transverse, descending and sigmoid colon. Minimal amount diverticulosis present in the sigmoid colon. Once in the rectum, Scope was retroflexed noting no other pathology except for small appearance of fibroepithelial polyp. Scope was returned to its normal position, slowly withdrawn until completely removed. The patient tolerated the procedure well without complications, taken to recovery room in stable condition. RECOMMENDATIONS: The patient will follow up on pathology. Scope will need repeat colonoscopy in 5 years. Any issues before that, be seen at that time. We would recommend high fiber diet. We discussed doing excision of the fibroepithelial polyp to make sure it for pathology. Job ID: [id number] DocumentID: [id number] Dictated Date: 06/17/2022 11:20:00 [employer]age Retic[employer] Drafting Officer Date: 06/17/2022 20:26:00 Dictated By: EDWARD ENGEL DO
== END 2022-06-17 11:50 | disposition home or self-care (01) ==
LOC: ENDO 10:04
PROVIDERS: ATTEND Surgery
DX: Z12.11 Encounter for screening for malignant neoplasm of colon (principal); D12.2 Benign neoplasm of ascending colon; K62.1 Rectal polyp; K57.30 Diverticulosis of large intestine without perforation or abscess without bleeding; K29.50 Unspecified chronic gastritis without bleeding; K44.9 Diaphragmatic hernia without obstruction or gangrene; K31.89 Other diseases of stomach and duodenum; E66.9 Obesity, unspecified; Z68.33 Body mass index [BMI] 33.0-33.9, adult; Z87.891 Personal history of nicotine dependence
CPT/HCPCS: 88305